=== PATIENT | male | born 1970 | race Caucasian/White ===

== ENCOUNTER 2019-04-27 22:30 | Emergency (ER) | payer MEDICAID ==
[~2019-04-27] VITALS: Ht 185.4 cm; Wt 79.4 kg
--- NOTE | 2019-04-27 22:40 | NUR ---
Patient walked into ER c/o redness, swelling and pain on left lower leg that started yesterday. Patient left solorio and ankle with redness and swelling noted.
--- NOTE | 2019-04-27 22:43 | NUR ---
Dr Landis into eval patient.
--- NOTE | 2019-04-27 22:50 | NUR ---
Blood was not drawn as per Dr Boby anderson.
[2019-04-27] MEDS ORDERED: VANCOMYCIN IV 200 ML ONE (22:59)
[2019-04-27] MEDS ORDERED: IV NORMAL SALINE 1000 ML BAG IV ONE (23:00)
[2019-04-27] MEDS ORDERED: VANCOMYCIN IV 1,000 MG in IV DEXTROSE 5% 250 ML IV ONE (23:00)
--- NOTE | 2019-04-28 00:40 | NUR ---
IV removed. Catheter intact and site benign. Pressure and 4x4 gauze applied to site. No bleeding noted.
--- NOTE | 2019-04-28 00:55 | NUR ---
Patient given written and verbal discharge instructions. Patient verbalizes understanding of instructions. Patient is ambulatory with steady gait. Refuses offer of [facility] placement. Patient given list of available shelters in surrounding area.
[2019-04-28 01:13] VITALS: BP 130/80
== END 2019-04-28 01:13 | disposition home or self-care (01) ==
LOC: ER 22:30
DX: L03.116 Cellulitis of left lower limb (principal); Z60.2 Problems related to living alone
CPT/HCPCS: 99283; J3370; A4663; J7030

== ENCOUNTER 2019-04-28 16:22 | Inpatient (IN) | payer MEDICAID ==
[~2019-04-28] VITALS: Ht 185.4 cm; Wt 79.4 kg
[2019-04-28 17:28] LABS: BASOPHILS % (AUTO) 0.5 % (0.0-2.0); EOSINOPHILS # (AUTO) 0.1 K/uL (0.0-0.7); EOSINOPHILS % (AUTO) 0.7 % (0.0-7.0); HEMATOCRIT 32.9 % (36.7-47.1); HEMOGLOBIN 11.2 g/dL (12.5-16.3); LYMPHOCYTES # (AUTO) 1.4 K/uL (20.0-40.0); MEAN CORPUSCULAR HEMOGLOBIN 30.8 uug (23.8-33.4); MEAN CORPUSCULAR HGB CONC 34 g/dL (32.5-36.3); MEAN CORPUSCULAR VOLUME 90.9 fL (73.0-96.2); MONOCYTES # (AUTO) 0.9 K/uL (2.0-10.0); MONOCYTES % (AUTO) 11.2 % (0.0-11.0); NEUTROPHILS # (AUTO) 5.6 K/uL (1.8-8.9); NEUTROPHILS % (AUTO) 69.6 % (38.5-71.5); PLATELET COUNT (AUTO) 313 K/uL (152-348); RED BLOOD CELL COUNT(AUTO) 3.62 MIL/uL (4.06-5.63)
[2019-04-28 17:35] LABS: CARBON DIOXIDE 30 mmol/L (21-32); CHLORIDE 107 mmol/L (98-107); GLUCOSE 119 mg/dL (74-106); POTASSIUM 3.7 mmol/L (3.5-5.1); UREA NITROGEN, BLOOD 16 mg/dL (7-18)
[2019-04-28 17:40] LABS: ALANINE AMINOTRANSFERASE 20 U/L (16-63); ALKALINE PHOSPHATASE 64 U/L (50-136); ASPARTATE AMINOTRANSFERASE 15 U/L (15-37); BILIRUBIN,TOTAL 0.4 mg/dL (0.2-1.0)
[2019-04-28 17:41] LABS: BILIRUBIN,DIRECT < 0.1 mg/dL (0.0-0.2)
[2019-04-28] MEDS ORDERED: VANCOMYCIN IV 1,000 MG in IV DEXTROSE 5% 250 ML IV ONE (17:45)
[2019-04-28] MEDS ORDERED: PIPERACILLIN SODIUM/TAZOBACTAM 3.375 G in IV DEXTROSE 5% 50 ML IV ONE (17:45)
[2019-04-28] MEDS ORDERED: VANCOMYCIN IV 200 ML ONE (17:48)
[2019-04-28] MEDS ORDERED: PIPERACILLIN/TAZOBACTAM/D5W 50 ML IV ONE (17:48)
--- NOTE | 2019-04-28 19:07 | NUR ---
Report given to JOAN Daly
--- NOTE | 2019-04-28 19:08 | NUR ---
Recieved patient from [facility]. Patient in [facility], currently with vanco infusing. No adverse reactions noted. No acute distress.
--- NOTE | 2019-04-28 20:00 | NUR ---
IV Vanco ended at this time.
--- NOTE | 2019-04-28 20:16 | NUR ---
Attempted to give report to [facility], per Héctor nurse is pulling meds and she will call me back.
--- NOTE | 2019-04-28 20:23 | NUR ---
Report given to Luther in [facility].
[2019-04-28] MEDS ORDERED: ACETAMINOPHEN 325 MG TABLET PO PRN (20:30)
[2019-04-28] MEDS ORDERED: ONDANSETRON 4 MG/2 ML VIAL IV PRN (20:30)
[2019-04-28] MEDS ORDERED: Z GUARD REMEDY PASTE 57 GM TUBE TOP PRN (20:30)
[2019-04-28] MEDS ORDERED: MAGNESIUM HYDROXIDE 30 ML LIQUID UDC PO PRN (20:30)
[2019-04-28] MEDS ORDERED: IV NS 1000 ML 1,000 ML IV PRN (20:30)
[2019-04-28 21:30] VITALS: BP 100/53
--- NOTE | 2019-04-28 21:30 | NUR ---
ADMITTED PATIENT ON MED SURG FLOOR UNDER THE CARE OF JUDI KIRK NP. PATIENT ALERT ORIENTED, WITH BILATERAL LEG PITTING EDEMA 2+, AND PATIENT LEFT LEG CELLULITIS, RIGHT LEG ALSO HAS REDNESS/CELLULITIS. PATIENT HAS NO COMPLAIN OF PAIN AT THIS TIME.
--- NOTE | 2019-04-28 22:27 | NUR ---
PATIENT REQUESTING SOMETHING FOR HEROINE WITHDRAWAL, NOTIFY JUDI KIRK NP WITH ORDER.
[2019-04-28] MEDS ORDERED: LORAZEPAM 2 MG/1 ML VIAL IV PRN (22:30)
[2019-04-28] MEDS ORDERED: PIPERACILLIN/TAZOBACTAM/D5W 100 ML IV ONE (23:26)
[2019-04-29] MEDS: PIPERACILLIN SODIUM/TAZOBACTAM 3.375 G in IV DEXTROSE 5% 50 ML IV SCH ×2 (00:18→05:09)
[2019-04-29] MEDS: HYDROCODONE/APAP 5-325MG TABLET PO PRN ×2 (01:06→14:32)
[2019-04-29 04:20] VITALS: BP 92/56
[2019-04-29] MEDS ORDERED: VANCOMYCIN 1000 MG VIAL ONE (05:22)
[2019-04-29] MEDS ORDERED: VANCOMYCIN IV 1 G in PREMIXED 0 EACH IV ONE (06:00)
[2019-04-29 06:22] LABS: BASOPHILS % (AUTO) 0.7 % (0.0-2.0); EOSINOPHILS # (AUTO) 0.1 K/uL (0.0-0.7); EOSINOPHILS % (AUTO) 1.1 % (0.0-7.0); HEMOGLOBIN 10.6 g/dL (12.5-16.3); LYMPHOCYTES # (AUTO) 1.2 K/uL (20.0-40.0); LYMPHOCYTES % (AUTO) 20.4 % (20.5-51.5); MEAN CORPUSCULAR HEMOGLOBIN 30.7 uug (23.8-33.4); MEAN CORPUSCULAR HGB CONC 33 g/dL (32.5-36.3); MEAN CORPUSCULAR VOLUME 92.5 fL (73.0-96.2); MONOCYTES # (AUTO) 0.8 K/uL (2.0-10.0); MONOCYTES % (AUTO) 13.5 % (0.0-11.0); NEUTROPHILS # (AUTO) 3.7 K/uL (1.8-8.9); NEUTROPHILS % (AUTO) 64.3 % (38.5-71.5); PLATELET COUNT (AUTO) 301 K/uL (152-348); RED BLOOD CELL COUNT(AUTO) 3.46 MIL/uL (4.06-5.63); WHITE BLOOD COUNT (AUTO) 5.7 K/uL (3.6-10.2)
[2019-04-29 06:41] LABS: MAGNESIUM 2.1 mg/dL (1.8-2.4); PHOSPHOROUS 3.2 mg/dL (2.5-4.9); POTASSIUM 4.3 mmol/L (3.5-5.1)
--- NOTE | 2019-04-29 06:51 | NUR ---
PATIENT ALERT ORIENTED, PAIN MEDICATION GIVEN WITH EFFECTIVE RESULTS. PATIENT HAS NO COMPLAIN OF PAIN AT THIS TIME, CALL LIGHT WITH REACH, CALL LIGHT WITHIN REACH.
--- NOTE | 2019-04-29 07:25 | NUR ---
RECEIVED PATIENT ASLEEP EASILY AROUSED ON ROUNDS ALERT AND AWARE NO S/S OF PAIN OR DISCOMFORTS AT THIS TIME REMAIN ON IVF ORDERED WITH NO S/S OF INFILTERATION ON SITE JAMMIE LOWER EXT SWOLLEN AND RED ENCOURES TO KEEP ELEVATED AND EXPRESSED UNDERSTANDING CALL LIGHTS AND PERSONAL BELONGINGS ARE WITHIN EASY REACH MADE COMFORTABLE AND WILL CONTINUE TO OBSERVE
--- NOTE | 2019-04-29 09:19 | NUR ---
PHARMACY CLINICAL NOTES: (VANCOMYCIN DOSING) S: To continue vanco dosing on this 48 yo male patient for cellulitis (IVDA) O: BUN/SCR 14/1.0, WBC 5.7 , T 97.6 ht 185 cm wt 79 kg A/P: Patient received vanco 1gm IVPB x1 on 04/28 at 1830 in [facility] & vanco 1gm IVPB today at 0600 (ordered by night [facility]). Will start vanco 1250 mg IVPB q11h for estimated trough of 16 mcg/ml. 1st dose today at 1600. Plan to order Trough prior to 4th dose of Vanco (not yet ordered). Will continue with monitoring renal fxn and levels and adjust the dose as necessary. Will follow
[2019-04-29] MEDS ORDERED: LORAZEPAM 2 MG/1 ML VIAL IV STA (10:19)
--- NOTE | 2019-04-29 10:20 | NUR ---
PATIENT IS REQUESTING FOR ATIVAN OFFERED HIM [facility] ORDERED DECLINED STATED FEELING WITHDRAWAL FOR HIS DRUG ADDICTION SO I CALLED JUDI KIRK SPOKE WITH HER WITH ORDERS AND NOTED.
--- NOTE | 2019-04-29 10:38 | NUR ---
ATIVAN ONE MG GIVEN AT THIS TIME ORDERED.
[2019-04-29 11:50] VITALS: BP 101/49
[2019-04-29] MEDS ORDERED: PIPERACILLIN SODIUM/TAZOBACTAM 3.375 G in IV DEXTROSE 5% 50 ML IV SCH (12:00)
[2019-04-29] MEDS ORDERED: LORAZEPAM 2 MG/1 ML VIAL IV PRN (12:15)
--- NOTE | 2019-04-29 14:30 | NUR ---
[facility]IC[facility] ORDERED WILL OBSERVE.
--- NOTE | 2019-04-29 15:25 | NUR ---
PATIENT CALLED MY ATTENTION AND STATED THAT HE WANTS TO LEAVE BECAUSE HE NEEDS TO USE HEROINE CALLED JUDI LAUGHLIN AND NOTIFIED HER THAT PATIENT WANTS TO LEAVE AMA WANTED TO FIND OUT WHICH PHARMACY PATIENT COULD PRICING INTERN HIS MEDICATIONS BUT PATIENT STATED HAS NO PHARMACY AND WILL NOT BE ABLE TO PIOCK UP ANY MEDS JUDI AWARE.
--- NOTE | 2019-04-29 15:35 | NUR ---
PATIENT SIGNED THE AMA FORM JEANNE REMOVED PATIENT IN A HURRY TO LEAVE REFUSED TO WAIT FOER DISCHARGE PAPERS BUT HE WAS INSTRUCTED THAT HE NEEDS ANTIBIOTICS TO GO BACK TO THE ED FOR WORSENING SYMPTOMS AND HE EXPRESSED UNDERSTANDING ESCORTED HIM TO THE FRONT OF THE HOSPITAL WITH ALL HIS PERSONAL BELONGINGS.
[2019-04-29 15:50] VITALS: BP 112/65
[2019-04-29] MEDS ORDERED: VANCOMYCIN IV 1,250 MG in IV DEXTROSE 5% 250 ML IV SCH (16:00)
== END 2019-04-29 15:35 | disposition left against medical advice (07) | DRG 383 ==
LOC: ER 16:24 → MEDSURG3 20:49
PROVIDERS: ADMIT Nurse Practitioner Acute Care; ATTEND Nurse Practitioner Acute Care
DX: L03.116 Cellulitis of left lower limb (principal); F11.20 Opioid dependence, uncomplicated; L03.115 Cellulitis of right lower limb; Z59.0 Homelessness; F17.210 Nicotine dependence, cigarettes, uncomplicated
CPT/HCPCS: 36415; 83735; 84100; 85025; 85730; 87040; A4663; G0378; J2060; J2543; J3370; J7030; J7060